=== PATIENT | female | born 1965 | race American Indian/Alaskan Native ===

== ENCOUNTER 2020-10-03 13:24 | Outpatient (CLI) | payer OTHER ==
--- NOTE | 2020-10-04 10:04 | Mammography Report ---
BILATERAL DIGITAL SCREENING MAMMOGRAM WITH CAD WITH TOMOSYNTHESIS HISTORY: History of right breast lumpectomy, annual bilateral screening mammogram. TECHNIQUE: Routine digital mammographic imaging performed. This examination was interpreted with julieth collier benefit of Computer-aided Detection analysis. COMPARISON: 09/08/2018 (only the left breast MLO views are able to be reviewed), 04/24/2017 FINDINGS: Breast Density: scattered fibroglandular appearance of the breast tissue. Digital CC and MLO views demonstrate no mammographic evidence of malignancy. Stable right upper oute r breast lumpectomy change. IMPRESSION: No mammographic evidence of malignancy. If the clinical examination remains stable, recommend bilate ral mammogram in approximately one year. BIRADS 2: Benign Finding(s). FURTHER INFORMATION: According to the [employer], yearly mammograms are recommend ed starting at age 40 and continuing as long as a woman is in good health. Clinical Breast Exams shou ld be part of a periodic health exam-about every 3 years for women in their 20s and 30s and every yea r for women 40 and over. Breast self exam is an option for women starting in their 20s. Any breast ch teo noted on a breast self exam should be reported promptly to the patient's healthcare provider. Br east MRI is recommended for women with an approximately 20-25% or greater lifetime risk of breast can cer, including women with a strong family history of breast or ovarian cancer and women who have been treated for Hodgkin's disease. A negative Mammography report should not discourage follow up or biopsy of a clinically significant f inding and/or abnormality. Dense breast tissue may obscure small neoplasms. The patient will be entered into a reminder system with a target due date for the next screening mamm ogram. Signer Name: David Blackmon MD Signed: 10/04/2020 10:00 AM Workstation Name: [id number]
== END 2020-10-03 13:25 | disposition home or self-care (01) ==
LOC: SPVWC 13:24
PROVIDERS: ATTEND Surgery
DX: Z12.31 Encounter for screening mammogram for malignant neoplasm of breast (principal); N64.89 Other specified disorders of breast
CPT/HCPCS: 77063; 77067

== ENCOUNTER 2021-11-27 06:57 | Day surgery (SDC) | payer OTHER ==
[2021-11-21 13:03] LABS: Hematocrit 39.9 % (30.3-42.9); Hemoglobin 12.8 gm/dl (10.1-14.3); Mean Corpuscular HGB Conc 32 % (30-34); Mean Corpuscular Volume 81 fl (79-97); Platelet Count 254 K/mm3 (140-440); Red Blood Count 4.92 M/mm3 (3.65-5.03); Red Cell Distribution Width 15.2 % (13.2-15.2)
--- NOTE | 2021-11-26 21:06 | Short Stay Summary ---
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 Operations: Breast Lumpectomy: (05/17/2015) Right Colon Resection: 10/2014 benign d/t mass noted on colonsocopy that was too large to be removed Cholecystectomy (1997) colon polypectomy 2014 and 2015 Abnormal PAP: negative Infection History HIV Risk Eval: no Hx of STD: None Active Medications (reviewed today): loratadine 10 mg tablet (loratadine) TAKE 1 TABLET BY MOUTH TWICE A DAY topiramate 50 mg tablet (topiramate) PLEASE SEE ATTACHED FOR DETAILED DIRECTIONS ibuprofen 800 mg tablet (ibuprofen) 1 (ONE) TABLET EVERY 8 HOURS NEEDED Current Allergies (reviewed today): No known allergies Past Medical History: Reviewed history from 10/30/2021 and no changes required: Breast Cancer (04/27/2015) right Dr. Patel, [facility] Dr. George Naranjo Menchion Headaches(Migraines) w/ aura Colon polyps 2014 & 2015 Past Surgical History: Reviewed history from 10/10/2021 and no changes required: Breast Lumpectomy: (05/17/2015) Right Colon Resection: 10/2014 benign d/t mass noted on colonsocopy that was too large to be removed Cholecystectomy (1997) colon polypectomy 2014 and 2015 Family History Summary: Reviewed history Last on 02/09/2021 and no changes required:11/26/2021 Other Family Member - Has No Family History of Uterine Cancer - Entered On: 06/27/2016 Other Family Member - Has No Family History of Small Bowel Cancer - Entered On: 06/27/2016 Other Family Member - Has No Family History of Stomach Cancer - Entered On: 06/27/2016 Other Family Member - Has No Family History of Pancreatic Cancer - Entered On: 06/27/2016 Other Family Member - Has No Family History of Ovarvian Cancer - Entered On: 06/27/2016 Other Family Member - Has No Family History of Kidney/Urinary Tract Cancer - Entered On: 06/27/2016 Other Family Member - Has No Family History of DVT/PE on OCP - Entered On: 06/27/2016 Other Family Member - Has No Family History of Colon Cancer - Entered On: 06/27/2016 Other Family Member - Has No Family History of Brain Cancer - Entered On: 06/27/2016 Other Family Member - Has No Family History of Breast Cancer - Entered On: 06/27/2016 Other Family Member - Has No Family History of Biliary Tract Cancer - Entered On: 06/27/2016 Father - Has Family History of Prostate Cancer - Entered On: 06/27/2016 Father - Has Family History of Lung Cancer - Entered On: 06/27/2016 Social History: Reviewed history from 07/04/2017 and no changes required: Patient is single Smoking History: Patient has never smoked. Risk Factors: Smoked Tobacco Use: Never smoker Smokeless Tobacco Use: Never Passive Smoke Exposure: no HIV High Risk Behavior: no Exercise: yes Seatbelt Use: 100 % Alcohol Use: yes Type: occ Drinks per day: social Drug Use: no Previous Tobacco Use: Signed On - 10/10/2021 Smoked Tobacco Use: Never smoker Smokeless Tobacco Use: Never Passive Smoke Exposure: no HIV High Risk Behavior: no Exercise: yes Times/wk: 4 Type of Exercise: walking Seatbelt Use: 100 % Alcohol Use: yes Type: occ Drinks per day: social Drug Use: no Impression & Recommendations: Problem # 1: Benign endometrial hyperplasia (ICD-621.31) (RPN61-G62.01) Simple hyperplasia w/o atypia on EMB in th postmenopausal patient, she agrees to proceed with cervical dilation, hysteroscopy and uterine curettage to ensure thorough assessment of the endometrial cavity to rule out malignancy. Her updated medication list for this problem includes: Ibuprofen 800 Mg Tablet (Ibuprofen) ..... 1 (one) tablet every 8 hours as needed Spoek with nohemy by christian November 26, 2021 Consent reviewed and signed . Possible laparoscopy or laparotomy explained to patient. The risks and alternatives for this surgery were reviewed with the patient. She was informed of the following risks, but not limited to, uterine perforation, possible bleeding, infection, injury to bowel, bladder, ureters or other adjacent organs. The patient was instructed/informed the following: The normal length of hospital stay for this procedure. Nothing to eat or drink after midnight the evening prior to surgery. Pre-op instruction sheets given. Wound care instructions given. Infection precautions reviewed, patient to call for any signs or symptoms of infection. The usual discomforts associated with this procedure were detailed. Proper use of pain medicines was reviewed. Patient was given ample opportunity to have all her questions answered before signing informed consent. Problem # 2: Endometrium thickened (ICD-793.5) (GOT62-D68.89) Problem # 3: Postmenopausal Bleeding (ICD-627.1) (IJQ38-W99.0) Her updated medication list for this problem includes: Ibuprofen 800 Mg Tablet (Ibuprofen) ..... 1 (one) tablet every 8 hours as needed Medications Added to Medication List This Visit: 1) Loratadine 10 Mg Tablet (Loratadine) .... Take 1 tablet by mouth twice a day ] ] Patient has been reassessed/reevaluated/re-examined. H&P has been reviewed. No interval changes. - History Principal diagnosis: Postmenopausal bleeding, obesity, simple hyperplasia w/o atypia - Allergies and Medications Current Medications: Allergies No Known Allergies Allergy (Unverified 05/15/15 09:55) Home Medications Medication Instructions Recorded Confirmed Last Taken Type Ibuprofen [Motrin] 800 mg PO PRN PRN 05/15/15 05/17/15 05/03/15 History 50 Plus Vitamin Gummy 2 dose PO DAILY 11/19/21 Unknown History Loratadine [Allergy] 10 mg PO BID 11/19/21 11/19/21 Unknown History Topiramate [Topamax] 50 mg PO DAILY 11/19/21 11/19/21 Unknown History Active Medications Cefazolin Sodium 3 gm/ Sodium (Chloride) 100 mls @ 100 mls/30 min IV PREOP NR; Protocol - Hospital course Hospital course: Normal - Disposition Condition at discharge: Good Disposition: 01 HOME / SELF CARE / HOMELESS - Discharge Diagnoses (1) Post-menopausal bleeding Status: Acute (2) Simple endometrial hyperplasia without atypia Status: Acute (3) Morbid obesity Status: Chronic (4) Bladder prolapse Status: Acute (5) Vaginal and cervical prolapse Status: Acute Short Stay Discharge Plan Activity: other (No sex x 1week) Weight Bearing Status: Full Weight Bearing Diet: regular Special Instructions: no heavy lifting (greater than 25lbs x1 week) Follow up with: JORGE DILL FNP [Primary Care Provider] - 7 Days AAMIR MCKEON MD [Staff Physician] - (As scheduled) Prescriptions: Ibuprofen [Motrin 800 MG tab] 800 mg PO PRN PRN #30 tab PRN Reason: Pain oxyCODONE /ACETAMINOPHEN [Percocet 5/325] 1 tab PO Q6HR PRN #5 tablet PRN Reason: Pain
[2021-11-27] MEDS ORDERED: LACTATED RINGERS 1,000 ML ONE (07:19)
--- NOTE | 2021-11-27 07:27 | Anesthesia Day of Surgery ---
Anesthesia Day of Surgery - Day of Surgery Patient Examined: Yes Patient H&P Reviewed: Yes Patient is NPO: Yes
--- NOTE | 2021-11-27 07:30 | Anesthesia Consultation ---
Anesthesia Consult and Med Hx Date of service: 11/27/21 - Airway Anesthetic Teeth Evaluation: Good ROM Head & Neck: Adequate Mental/Hyoid Distance: Adequate Mallampati Class: Class II Intubation Access Assessment: Probably Good - Pulmonary Exam CTA: Yes - Cardiac Exam Cardiac Exam: RRR - Pre-Operative Health Status ASA Pre-Surgery Classification: ASA2 Proposed Anesthetic Plan: General - Pulmonary Hx Smoking: No Hx Sleep Apnea: No (HIGH ON MANA PRESCREEN-SNORES) - Cardiovascular System Hx Hypertension: No Hx Heart Attack/AMI: No Hx Heart Murmur: No - Central Nervous System Hx Neuromuscular Disorder: Yes (Migraines) Hx Seizures: No Hx Back Pain: Yes Hx Psychiatric Problems: No - Gastrointestinal Hx Gastroesophageal Reflux Disease: No - Endocrine Hx Renal Disease: No Hx Non-Insulin Dependent Diabetes: No - Hematic Hx Anemia: No Hx Sickle Cell Disease: No - Other Systems Hx Alcohol Use: Yes (OCC WINE) Hx Substance Use: No Hx Cancer: Yes Hx Obesity: Yes - Additional Comments Anesthesia Medical History Comments: right breast lumpectomy with node dissection...no IV or Bp to right side
[2021-11-27] MEDS ORDERED: ONDANSETRON 4 MG/2 ML INJ IV PRN (07:35)
[2021-11-27] MEDS ORDERED: HYDROmorphone 1 MG/1 ML INJ IV PRN (07:35)
[2021-11-27] MEDS ORDERED: LACTATED RINGERS 1,000 ML IV SCH (07:45)
[2021-11-27] MEDS ORDERED: MIDAZOLAM 2 MG/2 ML INJ IV NR (08:00)
[2021-11-27] MEDS ORDERED: propofoL 200 MG/20 ML VIAL IV ONE ×2 (10:57→11:23)
[2021-11-27] MEDS ORDERED: fentaNYL 100 MCG/2 ML INJ ONE (10:57)
[2021-11-27] MEDS ORDERED: ONDANSETRON 4 MG/2 ML INJ ONE (10:58)
[2021-11-27] MEDS ORDERED: LIDOCAINE PF 100 MG/5 ML (CARDIAC SYRINGE) IV ONE (10:58)
[2021-11-27] MEDS ORDERED: ePHEDrine SULFATE 50 MG/1 ML INJ ONE (11:39)
[2021-11-27] MEDS ORDERED: KETOROLAC 30 MG/1 ML INJ ONE (11:49)
[2021-11-27] MEDS ORDERED: SODIUM CHLORIDE 0.9% IRRIG SOLN 2000 ML IR ONE (11:51)
--- NOTE | 2021-11-27 11:57 | Operative Report ---
Operative Report Operative Report: Date: 11/27/2021 PREOPERATIVE DIAGNOSES: 1. Postmenopausal bleed 2. Simple hyperplasia without atypia POSTOPERATIVE DIAGNOSES: 1. Postmenopausal bleed 2. Simple hyperplasia without atypia 3. Bladder and cervical prolapse PROCEDURE PERFORMED: 1. Hysteroscopy. 2. Dilation and curettage (D&C) ANESTHESIA: LMA ESTIMATED BLOOD LOSS: Less than minimal cc. INDICATIONS: This is a 56-year-old female that presents postmenopausal bleeding with simple hyperplasia without atypia. PROCEDURE: The patient was seen in the preoperative suite. Expected procedure and postoperative course discussed with her. She was taken to the operative suite where LMA was performed. She was placed in a dorsal lithotomy position. She was prepped and draped in the normal sterile fashion. Timeout was performed. Her bladder was drained with the red Wilson catheter which produced approximately 50 cc of clear yellow urine. The cervix and vagina were grossly normal with no obvious masses or deformities. A bivalve operative speculum was placed in the vagina and the anterior lip of the cervix was grasped with the single-tooth tenaculum. The uterus was sounded to ~9 cm. The cervix was progressively dilated to allow the diagnostic hysteroscope. Under direct visualization, the ostia were within normal limits. The endometrial lining appeared thickened, however, there was no obvious evidence of malignancy. The hysteroscope was removed and a small sharp curette was placed intrauterine very carefully using anterior wall for guidance. Endometrial curettings were obtained. The endometrial sampling was placed on Telfa pad and sent to Pathology for evaluation, permanent. The hysteroscope was introduced again, no evidence of perforation was noted. At this point procedure was ended. The single-tooth tenaculum and speculum were removed. The cervix was found to be hemostatic. Counts were correct. Patient was taken to the PACU stable. Distention fluid: Normal saline Deficit: 150 mL
[2021-11-27] MEDS: HYDROmorphone 1 MG/1 ML INJ IV PRN ×2 (12:14→12:24)
[2021-11-27 13:29] VITALS: BP 123/84
--- NOTE | 2021-11-27 18:20 | Post Anesthesia Evaluation ---
- Post Anesthesia Evaluation Patient Participated: Yes Airway Patent: Yes Stable Respiratory Function: Yes Nausea/Vomiting: No Temp > 96.8F: Yes Pain Manageable: Yes Adequeate Hydration: Yes Anesthesia Complications: No Block Receding Appropriately: Not Applicable Patient on Ventilator: No
== END 2021-11-27 13:25 | disposition home or self-care (01) ==
LOC: OR 06:57
PROVIDERS: ATTEND Obstetrics & Gynecology
DX: N95.0 Postmenopausal bleeding (principal); N85.01 Benign endometrial hyperplasia; E66.01 Morbid (severe) obesity due to excess calories; G43.909 Migraine, unspecified, not intractable, without status migrainosus; Z20.822 Contact with and (suspected) exposure to COVID-19; Z79.899 Other long term (current) drug therapy; Z68.43 Body mass index [BMI] 50.0-59.9, adult; Z90.49 Acquired absence of other specified parts of digestive tract; Z87.440 Personal history of urinary (tract) infections; Z72.89 Other problems related to lifestyle; Z98.890 Other specified postprocedural states
CPT/HCPCS: 36415; 58558; 81025; 85027; 88305; J0690; J1170; J1885; J2001; J2250; J2405; J2704; J3010; J3490; J7120; U0003

== ENCOUNTER 2022-03-12 05:41 | Day surgery (SDC) | payer OTHER ==
[2022-03-06 13:07] LABS: Blood Urea Nitrogen 13 mg/dL (7-17); Calcium 9.1 mg/dL (8.4-10.2); Hemolysis Index 2
[2022-03-06 13:10] LABS: BUN/Creatinine Ratio 22
[2022-03-06 15:45] LABS: Hematocrit 40.8 % (30.3-42.9); Hemoglobin 12.8 gm/dl (10.1-14.3); Mean Corpuscular HGB Conc 31 % (30-34); Mean Corpuscular Volume 81 fl (79-97); Platelet Count 238 K/mm3 (140-440); Red Blood Count 5.04 M/mm3 (3.65-5.03); Red Cell Distribution Width 15.4 % (13.2-15.2)
--- NOTE | 2022-03-10 22:06 | History and Physical Report ---
History of Present Illness Date of examination: 03/06/22 History of present illness: Patient has been reassessed/reevaluated. H&P has been reviewed. No interval changes. This is a 56 years old female who presents with postmenopausal and diagnose of endomettial hyperplasia She complains of irregular menses, fatigue and cramping, but denies mid-cycle spotting, heavy bleeding, lack of menses, dysmenorrhea, clotting, history of ovarian cysts, history of thyroid disease, history of fibroids, history of PCOS, history of bleeding disorder and lightheadedness. Patient's work up has included operative hysteroscopy with D&C. Patient desires definitive treatment Past History : 3 Term Births: 1 Premature Births: 2 Living Children: 3 Para: 3 Mult. Births: 0 Prev : 0 Aborta: 0 Elect. Ab: 0 Spont. Ab: 0 Ectopics: 0 # 1 Delivery date: 1982 Comments: svdx3 Current Allergies: No known allergies Past Medical History: Breast Cancer (04/27/2015) right Dr. Patel, [facility] Dr. George Naranjo Menchion Headaches(Migraines) w/ aura Colon polyps 2014 & 2015 Past Surgical History: Breast Lumpectomy: (05/17/2015) Right Colon Resection: 10/2014 benign d/t mass noted on colonsocopy that was too large to be removed Cholecystectomy (1997) colon polypectomy 2014 and 2015 D&C: (11/27/2021) Hysteroscopy: (11/27/2021) Social History: Patient is single Smoking History: Patient has never smoked. 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 Complains of abnormal vaginal bleeding. Denies vaginal discharge, incontinence, dysuria, hematuria, urinary frequency, amenorrhea, menorrhagia, pelvic pain, genital sores, decreased libido, painful periods, painful sex, urinary urgency, hot flashes, vaginal dryness, vaginal itching and vaginal odor. CV Denies chest pains, palpitations, syncope, dyspnea on exertion, orthopnea, PND and peripheral edema. Resp Denies cough, dyspnea at rest, excessive sputum, hemoptysis, wheezing and pleurisy. GI Denies nausea, vomiting, diarrhea, constipation, change in bowel habits, abdominal pain, melena, hematochezia, jaundice, gas/bloating, indigestion/heartburn, dysphagia and odynophagia. Breast Denies left breast lump, right breast lump, nipple discharge, bloody discharge from nipple, breast pain, abnormal mammogram and breast enlargement. Psych Denies depression, anxiety, irritability and mood swings. Past History Past Medical History: other (SEE HPI) Past Surgical History: Other (SEE HPI) Social history: other (SEE HPI) Family history: other (SEE HPI) Medications and Allergies Allergies Allergy/AdvReac Type Severity Reaction Status Date / Time No Known Allergies Allergy Verified 03/04/22 11:28 Home Medications Medication Instructions Recorded Confirmed Last Taken Type Loratadine [Allergy] 10 mg PO BID 11/19/21 03/12/22 03/09/22 09:00 History Topiramate [Topamax] 50 mg PO DAILY 11/19/21 03/12/22 03/11/22 09:00 History Ibuprofen [Motrin 800 MG tab] 800 mg PO PRN PRN #30 tab 11/27/21 03/12/22 0 03/07/22 09:00 Rx Active Meds: Active Medications Acetaminophen (Acetaminophen 500 Mg Tab) 1,000 mg PO ONCE NR Stop: 03/12/22 21:00 Celecoxib (Celecoxib 200 Mg Cap) 400 mg PO PREOP NR Stop: 03/12/22 21:00 Lactated Ringer's (Lactated Ringers) 1,000 mls @ 125 mls/hr IV DIRECT JIMMIE Magnesium Oxide (Magnesium Oxide 400 Mg Tab) 400 mg PO ONCE NR Stop: 03/12/22 21:00 Methocarbamol (Methocarbamol 750 Mg Tab) 1,500 mg PO ONCE NR Stop: 03/12/22 21:00 Review of Systems Constitutional: other (SEE HPI) Exam - Physical Exam Narrative exam: HEENT: normocephalic, no lesions or deformities Skin no ulcers, xanthomas, skin tag medial right thigh Chest: respiratory effort normal, clear to auscultation CV: regular, normal S1-S2, no murmur, no rub, no gallop Abdomen: soft, non-tender, no masses, obese Neuro: no gross anomalities Extremities: no edema [employer]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 No evidence of cystocele or rectocele. Cervix: normal appearance, no lesions, no discharge Uterus: unable to palpate Adnexae: unable to palpate due to obesity Rectovaginal: exam defered - Constitutional Vitals: Temp Pulse Resp BP Pulse Ox 97.7 F 72 16 119/76 99 03/06/22 12:00 03/06/22 12:00 03/06/22 12:00 03/06/22 12:00 03/06/22 12:00 Results - Labs CBC & Chem 7: 03/06/22 06:00 03/06/22 12:13 Assessment and Plan - Patient Problems (1) Simple endometrial hyperplasia without atypia Current Visit: No Status: Acute Plan to address problem: Diagnosis explained to patient . Questions answered. Malignancy risk explained to patient. Stressed importance of continue surveillance . Again options reviewed,including serial EMB vs h'scopy D&C or hysterectomy with bilateral salpingo-oophorectomy. Patient desires hysterectomy Discussed risks and benefits of laparotomy, laparoscopy, vaginal and robotic assisted approaches for hysterectomies Patient desires robotic assisted total hysterectomy. Consent reviewed and signed . The risks and alternatives for this surgery were reviewed with the patient. Discuss the risks of the surgery including infection, bleeding possibly heavy enough to require a blood transfusion, possible damage to bowel, bladder or ureter. Patient understand that this surgery with make her sterile.Patient understands recommendation for ovaries removal is due to her history of breast cance and her increase risk of ovarian cancer.. Also if unable to complete robitcally a laparotomy may be required. Patient understands and desires to proceed. (2) Post-menopausal bleeding Current Visit: No Status: Acute Plan to address problem: Probably secondary to # 1 (3) History of breast cancer Current Visit: No Status: Acute Plan to address problem: Dr. Patel does not recommend hormone therapy. Again options reviewed, she desires to proceed with hysterectomy/BSO. (4) Morbid obesity Current Visit: No Status: Chronic (5) Migraine headache Current Visit: No Status: Acute Qualifiers: Migraine type: unspecified Status migrainosus presence: without status migrainosus Intractability: not intractable Qualified Code(s): G43.909 - Migraine, unspecified, not intractable, without status migrainosus
[2022-03-12] MEDS ORDERED: MIDAZOLAM 2 MG/2 ML INJ IV NR (06:00)
[2022-03-12] MEDS ORDERED: LACTATED RINGERS 1,000 ML IV SCH (06:00)
[2022-03-12] MEDS ORDERED: ACETAMINOPHEN 500 MG TAB PO NR (06:00)
[2022-03-12] MEDS ORDERED: MAGNESIUM OXIDE 400 MG TAB PO NR (06:00)
[2022-03-12] MEDS ORDERED: CELECOXIB 200 MG CAP PO NR (06:00)
[2022-03-12] MEDS ORDERED: fentaNYL 100 MCG/2 ML INJ IV PRN (06:00)
--- NOTE | 2022-03-12 07:17 | Anesthesia Consultation ---
Anesthesia Consult and Med Hx Date of service: 03/12/22 - Airway Anesthetic Teeth Evaluation: Good ROM Head & Neck: Adequate Mental/Hyoid Distance: Adequate Mallampati Class: Class II Intubation Access Assessment: Possibly Difficult - Pulmonary Exam CTA: Yes - Cardiac Exam Cardiac Exam: RRR - Pre-Operative Health Status ASA Pre-Surgery Classification: ASA2 Proposed Anesthetic Plan: General Nerve Block: TAP - Pulmonary Hx Smoking: No Hx Asthma: No COPD: No Hx Pneumonia: No Hx Sleep Apnea: No (HIGH ON MANA PRESCREEN-SNORES) - Cardiovascular System Hx Hypertension: No Hx Heart Attack/AMI: No Hx Heart Murmur: No - Central Nervous System Hx Neuromuscular Disorder: Yes (Migraines) Hx Seizures: No Hx Back Pain: Yes Hx Psychiatric Problems: No - Gastrointestinal Hx Gastroesophageal Reflux Disease: No - Endocrine Hx Renal Disease: No Hx Non-Insulin Dependent Diabetes: No - Hematic Hx Anemia: No Hx Sickle Cell Disease: No - Other Systems Hx Alcohol Use: Yes (RARELY) Hx Substance Use: No Hx Cancer: Yes Hx Obesity: Yes - Additional Comments Anesthesia Medical History Comments: No GAC. No FHAC.
--- NOTE | 2022-03-12 07:17 | Anesthesia Day of Surgery ---
Anesthesia Day of Surgery - Day of Surgery Patient Examined: Yes Patient H&P Reviewed: Yes Patient is NPO: Yes
[2022-03-12] MEDS ORDERED: ONDANSETRON 4 MG/2 ML INJ IV PRN (07:28)
[2022-03-12] MEDS ORDERED: oxyCODONE /ACETAMINOPHEN 5-325MG TAB PO PRN (07:28)
[2022-03-12] MEDS ORDERED: HYDROmorphone 0.5 MG/0.5 ML INJ IV PRN (07:28)
[2022-03-12] MEDS ORDERED: NEOMY 40 MG/POLYMYXIN B 200,000 UNITS/ML (GU) AMPULE IR ONE ×2 (07:33→10:02)
[2022-03-12] MEDS ORDERED: ceFAZolin/STERILE WATER 2 GM/20 ML SYRINGE IV NR (07:35)
[2022-03-12] MEDS ORDERED: dexAMETHasone 4 MG/ML VIAL ONE (07:37)
[2022-03-12] MEDS ORDERED: BUPIVACAINE-EPINEPHRINE/PF 0.25%-1:200,000 (30 ML) VIAL INFILTRATI ONE (07:38)
[2022-03-12] MEDS ORDERED: HYDROmorphone 1 MG/1 ML INJ ONE (07:41)
[2022-03-12] MEDS ORDERED: ONDANSETRON 4 MG/2 ML INJ ONE (07:41)
[2022-03-12] MEDS ORDERED: dexAMETHasone 20 MG/5 ML VIAL ONE (07:41)
[2022-03-12] MEDS ORDERED: SUCCINYLCHOLINE CHLORIDE 200 MG/10 ML INJ MDV ONE (07:41)
[2022-03-12] MEDS ORDERED: propofoL 200 MG/20 ML VIAL IV ONE (07:41)
[2022-03-12] MEDS ORDERED: ROCURONIUM 50 MG/5 ML INJ IV ONE (07:41)
[2022-03-12] MEDS ORDERED: LIDOCAINE MPF (2%) 20 MG/1 ML VIAL 5 ML ONE (07:41)
[2022-03-12] MEDS ORDERED: ePHEDrine SULFATE 50 MG/1 ML INJ ONE (07:42)
[2022-03-12] MEDS ORDERED: ceFAZolin/Water 2 GM/20 ML 2 GM/20 ML SYRINGE IV ONE (07:54)
[2022-03-12] MEDS ORDERED: SODIUM CHLORIDE 0.9% IRR 1,500 ML BOTTLE IR ONE (10:02)
[2022-03-12] MEDS ORDERED: SUGAMMADEX SODIUM 200 MG/2 ML VIAL IV ONE (10:29)
[2022-03-12] MEDS ORDERED: HYDROcodone/ACETAMINOPHEN 5-325 MG TAB PO PRN (10:52)
[2022-03-12] MEDS ORDERED: ACETAMINOPHEN 325 MG TAB PO PRN (11:00)
--- NOTE | 2022-03-12 11:01 | Operative Report ---
Operative Report Operative Report: Date of procedure: September 12, 2021 Pre-operative diagnosis: Post menopausal bleeding with endometrial hyperplasia Post-operative diagnosis: Same plus leiomyoma Procedure name(s): Robotic assisted total hysterectomy with bilateral salpingo- oophorectomy Surgeon: Antonio Clay MD Forensic Sergeant: Faye Tukcer, certified histologic technician Anesthesia: General EBL: 50 cc Complications: None Findings: Patient with uterus approximately 8weeks incised with a anterior fundal myoma approximately 2 cm in diameter. Patient with normal-appearing adnexa bilaterally she did have at omental adhesions on anterior abdominal wall Specimen(s): Uterus including cervix was bilateral adnexa Procedure: Patient was brought to the operating room where general anesthesia was induced without difficulty. Patient was placed in the dorsal lithotomy position. Prepped and draped in the usual sterile manner for robotic procedure. Hitchcock catheter was placed without difficulty. Speculum was placed in the vagina. A medium V-Care Uterine manipulator was placed without difficulty. Attention was now switched to the patient's abdomen. A vertical supra-umbilicus incision was made with a scalpel. A 10-12 trocar was placed in this incision under direct visualization. Intra-abdominal placement was verified with no evidence of internal organ damage. The patient was insufflated approximately 3-1/2 L of CO2 gas. She was placed in Trendelenburg position. The patient pelvic findings were noted as above. It was determined that the patient was a candidate for robotic procedure. On both sides the umbilical incision at about 8 cm, incisions were made for robotic trocars. Each robotic trocar was placed under direct visualization with no evidence of internal organ damage. One 5 mm trocar was placed 2 fingerbreadths above the right iliac crest. A 5 mm camera was placed in the right lower quadrant trocar, the 10-12 trocar was removed and a Chauncey Medrano laparoscopic port closure device was placed through this incision under direct visualization with no evidence of internal organ damage. The camera was then replaced into this port. At this time the patient was placed in extreme Trendelenburg. The da Kina robot was then docked on the patient's left side. The trocars connected to the robot appropriately robotic instruments were placed under direct visualization no evidence of internal organ damage.. At this time I took my place under the robotic operating [place]. Starting on the patient's right side the right ureter was clearly seen out of the operative field. The ovarian vessels were clearly seen cauterize and cut robotic vessel sealer. The meso salpinx were cauterized and cut reaching to the round ligament. The round ligament was cauterized and cut. The leaves of the broad ligament on that side was anteriorly and posteriorly. The anterior leaves were use to form a bladder flap anteriorly the posterior leaf was cut exposing the uterine vessels on that side. The uterine vessels were cauterized and cut the bladder flap was more clearly made. Attention was then switched to the patient's left side. Where the ureter was again identified and cleared out of the field. The same procedure was cauterized and cut and the ovarian vessels and receiving with some incising the round ligament broad the broad ligament then cauterized and cut and the uterine vessels were performed.. At this time the uterus was appearing very cyanotic. After inspecting the bladder flap insured no evidence of bladder injury, the colpotomy was then started using robotic unipolar scissors. Incision started at 6:00 until the V-Care could be seen. This incision was extended from 6:00 to 9:00. Then from 6:00 to 3:00. Then from 9:00 to 12:00. This incision was extended from 3:00 to 12:00. At this time colpotomy was complete with no evidence of adjacent organ damage. The cafe assistant remove the uterus from through the colpotomy site. The vaginal cuff was irrigated and cauterized and found to be hemostatic. The cuff was closed with roboticly using 0 V- Lock suture. This closure was hemostatic after irrigation and Bovie. All pedicles were inspected and found to be hemostatic. The ureters were identified bilaterally and found to be functioning normal. The Hitchcock bag had clear yellow urine. The da Kina device was then undocked. The 5 mm laparoscopic scope was then placed in the assistant to the director port to look at the area with the omental adhesions were entered and found to be hemostatic with no evidence of internal organ damage. All instruments were then removed. The large trocar sites were closed in layers 2-0 and 4-0 Vicryl. The smaller incisions were closed subcuticularly with 4-0 Vicryl. The patient tolerated procedure well. She was awakened in the operating room and accompanied to the recovery room in good condition.
[2022-03-12] MEDS ORDERED: fentaNYL 100 MCG/2 ML INJ IV NR (12:00)
--- NOTE | 2022-03-12 13:43 | Short Stay Summary ---
Short Stay Documentation Date of service: 03/12/22 - History Principal diagnosis: Endometrial hyperplasia with post menopausal bleeding H&P: dictated Past Medical History: other (SEE HPI) Past Surgical History: Other (SEE HPI) Social history: other (SEE HPI) - Allergies and Medications Current Medications: Allergies No Known Allergies Allergy (Verified 03/04/22 11:28) Home Medications Medication Instructions Recorded Confirmed Last Taken Type RX: Loratadine [Allergy] 10 mg PO BID 11/19/21 03/12/22 03/09/22 09:00 History RX: Topiramate [Topamax] 50 mg PO DAILY 11/19/21 03/12/22 03/11/22 09:00 History RX: Ibuprofen [Motrin 800 MG tab] 800 mg PO PRN PRN #30 tab 11/27/21 03/12/22 03/07/22 09:00 Rx Active Medications Acetaminophen (Acetaminophen 500 Mg Tab) 1,000 mg PO ONCE NR Stop: 03/12/22 21:00 Last Admin: 03/12/22 06:35 Dose: 1,000 mg Acetaminophen (Acetaminophen 325 Mg Tab) 650 mg PO Q4H PRN PRN Reason: Pain MILD(1-3)/Fever >100.5/[place] Hydrocodone Bitart/Acetaminophen (Hydrocodone/Acetaminophen 5-325 Mg Tab) 2 each PO Q6H PRN PRN Reason: Pain, Moderate (4-6) Stop: 03/12/22 20:00 Celecoxib (Celecoxib 200 Mg Cap) 400 mg PO PREOP NR Stop: 03/12/22 21:00 Last Admin: 03/12/22 06:35 Dose: 400 mg Fentanyl (Fentanyl 100 Mcg/2 Ml Inj) 100 mcg IV ONCE PRN PRN Reason: sedation for nerve block Stop: 03/12/22 23:59 Last Admin: 03/12/22 07:41 Dose: 100 mcg Fentanyl (Fentanyl 100 Mcg/2 Ml Inj) 50 mcg IV ONCE NR Stop: 03/12/22 14:00 Last Admin: 03/12/22 12:15 Dose: 50 mcg Hydromorphone HCl (Hydromorphone 0.5 Mg/0.5 Ml Inj) 0.5 mg IV Q10MIN PRN PRN Reason: Pain , Severe (7-10) Stop: 03/12/22 20:00 Lactated Ringer's (Lactated Ringers) 1,000 mls @ 125 mls/hr IV DIRECT JIMMIE Last Admin: 03/12/22 07:35 Dose: 125 mls/hr Magnesium Oxide (Magnesium Oxide 400 Mg Tab) 400 mg PO ONCE NR Stop: 03/12/22 21:00 Last Admin: 03/12/22 06:35 Dose: 400 mg Methocarbamol (Methocarbamol 750 Mg Tab) 1,500 mg PO ONCE NR Stop: 03/12/22 21:00 Last Admin: 03/12/22 06:35 Dose: 1,500 mg Midazolam HCl (Midazolam 2 Mg/2 Ml Inj) 2 mg IV PREOP NR Stop: 03/12/22 23:59 Last Admin: 03/12/22 07:41 Dose: 2 mg - Physical exam General appearance: no acute distress Integumentary: no rash HEENT: Atraumatic Lungs: Normal air movement Breasts: deferred Heart: Regular rate Gastrointestinal: hypoactive bowel sounds, tenderness (Appropriate postop), distended (Appropriate post robotic procedure) Female Genitourinary: normal Rectal Exam: deferred Extremities: no ischemia Neurological: Normal speech - Brief post op/procedure progress note Date of procedure: 03/12/22 (See dictated operative note for details) Pre-op diagnosis: Robotic assisted total hysterectomy with bilateral salpingo- oophorectomy - Hospital course Hospital course: Patient was admitted underwent the above him procedure without any complications. Patient will be discharged with follow-up in office in 1-2 weeks for postop check. - Disposition Condition at discharge: Good Disposition: 01 HOME / SELF CARE / HOMELESS - Discharge Diagnoses (1) Simple endometrial hyperplasia without atypia Status: Acute (2) Post-menopausal bleeding Status: Acute (3) History of breast cancer Status: Acute (4) Morbid obesity Status: Chronic (5) Migraine headache Status: Acute Qualifiers: Migraine type: unspecified Status migrainosus presence: without status migrainosus Intractability: not intractable Qualified Code(s): G43.909 - Migraine, unspecified, not intractable, without status migrainosus Short Stay Discharge Plan Activity: advance as tolerated Diet: regular Wound: open to air Additional Instructions: Patient to call office for any fever, chills, nausea, vomiting or pain not controlled by pain medication. Follow up with: JORGE DILL FNP [Primary Care Provider] - 7 Days Forms: Outpatient Surgery DC Inst., Post Sedation D/C Instructions
--- NOTE | 2022-03-12 14:13 | Post Anesthesia Evaluation ---
- Post Anesthesia Evaluation Patient Participated: Yes Airway Patent: Yes Stable Respiratory Function: Yes Nausea/Vomiting: No Temp > 96.8F: Yes Pain Manageable: Yes Adequeate Hydration: Yes Anesthesia Complications: No
[2022-03-12 16:54] VITALS: BP 125/77
== END 2022-03-12 14:00 | disposition home or self-care (01) ==
LOC: OR 05:41
PROVIDERS: ATTEND Obstetrics & Gynecology
DX: N95.0 Postmenopausal bleeding (principal); D25.2 Subserosal leiomyoma of uterus; N85.01 Benign endometrial hyperplasia; Z20.822 Contact with and (suspected) exposure to COVID-19; E66.01 Morbid (severe) obesity due to excess calories; G43.909 Migraine, unspecified, not intractable, without status migrainosus; Z85.3 Personal history of malignant neoplasm of breast; Z79.899 Other long term (current) drug therapy; Z68.36 Body mass index [BMI] 36.0-36.9, adult; Z90.49 Acquired absence of other specified parts of digestive tract; Z87.440 Personal history of urinary (tract) infections; Z72.89 Other problems related to lifestyle; Z98.890 Other specified postprocedural states
CPT/HCPCS: 36415; 58571; 64488; 80048; 81025; 85027; 86850; 86900; 86901; 88307; J0330; J0690; J1100; J1170; J2250; J2405; J2704; J3010; J3490; J7120; S2900; U0003; 64448; 64450

== ENCOUNTER 2022-04-03 15:10 | Outpatient (CLI) | payer OTHER ==
--- NOTE | 2022-04-03 21:43 | XRay Report ---
PELVIS 1 VIEW(S) INDICATION / CLINICAL INFORMATION: INGUINAL PAIN R10.2 COMPARISON: None available. FINDINGS: BONES / JOINT(S): No acute fracture or subluxation. No significant arthritis. SOFT TISSUES: No significant abnormality. ADDITIONAL FINDINGS: None. Signer Name: Nadeem Moses MD Signed: 04/03/2022 9:38 PM Workstation Name: [id number]
== END 2022-04-03 15:11 | disposition home or self-care (01) ==
LOC: XRAY 15:10
PROVIDERS: ATTEND Obstetrics & Gynecology
DX: R10.2 Pelvic and perineal pain (principal)
CPT/HCPCS: 72170